=== PATIENT | male | born 1965 | race African-American/Black ===

== ENCOUNTER → 2016-11-19 | Day surgery (SDC) | payer OTHER ==
[~2016-11-19] MED LIST: METOPROLOL SUCC50 MG PO; MULTIVITAMINS1 EAC3 PO; SIMVASTATIN10 MG PO
--- NOTE | ~2016-11-19 | OR ---
Unit #: [id number] #: [id number] Patient: MEGHANN GARDINER [id number] [address] [place], [place] [address] [id number] O MR#: [id number] NAME: MEGHANN GARDINER. ROOM: Date of Procedure: 11/19/2016 Admission Date: 11/19/2016 Surgeon: Alberto Rabago Jr., M.D. : 1965 Attending Physician: Alberto Rabago Jr., M.D. Primary Care Physician: Dawn Vanegas M.D. OPERATIVE REPORT INDICATIONS FOR PROCEDURE The patient is a 51-year-old black male, recently presented to the office complaining of some rectal bleeding. He has had this off and on for a year. He feels that it may be hemorrhoidal. He is brought in this time for colonoscopy at his request. He has had no previous scopes. PREOPERATIVE DIAGNOSIS Rectal bleeding, etiology? POSTOPERATIVE DIAGNOSES Bleeding external hemorrhoids, which were slightly bleeding today along with a small polyp of the cecum approximately 2 to 3 mm in diameter. ANESTHESIA MAC anesthesia. PROCEDURE PERFORMED Flexible colonoscopy to the cecum with biopsy using a snare of a polyp in the cecum. DESCRIPTION OF PROCEDURE The patient was positioned in Ocasio position with left side down. After being given MAC anesthesia, digital rectal examination was performed, which revealed no palpable mass or tenderness. No stool present, but there was small amount of blood and there were several external hemorrhoids present. These appeared to be the source of the bleeding. His prostate was normal by palpation. The Olympus colonoscope was advanced through the anal canal up the rectum and retroflexed down to the area of the anorectal region. There were no internal hemorrhoids noted. The scope was then straightened and advanced up in the rectosigmoid, in the sigmoid and descending colon areas, around the splenic flexure and the transverse colon, around hepatic flexure and the ascending colon, down in the area of the cecum. The light from the tip of the scope could be seen transilluminating through right lower quadrant abdominal wall area. Multiple attempts in advancing the scope up the distal ileum were unsuccessful. In the area of the cecum just distal to the ileocecal valve, there was a small 2 to 3 mm polyp. This was snared at its base, suctioned out through the suction port and sent to pathology. The base was well coagulated with no evidence of any bleeding or extensive espitia. The scope was then slowly removed. There were no other polyps, no tumors, cancer, or AVMs. No evidence of any colitis, diverticulosis, or diverticulitis. The caliber of the colon appeared normal throughout Unit #: [id number] #: [id number] Patient: MEGHANN GARDINER without evidence of narrowing or obstruction. The scope was removed. The patient tolerated the procedure well and discharged in satisfactory condition. Dictated by... Alberto Rabago Jr., MSury. BOBBI/[place] TD: 11/19/2016 19:38 JOB #: [id number] OPERATIVE REPORT Page 1 of 1 X Alberto Rabago MD X PROCEDURE OPERATIVE NOTE
== END | disposition home or self-care (01) ==
LOC: COPS 11-07 12:30
PROVIDERS: Surgery
PROC: 0DBH8ZX Excision of Cecum, Via Natural or Artificial Opening Endoscopic, Diagnostic (ICD-10-PCS; principal; 2016-11-19 08:00)
DX: K64.4 Residual hemorrhoidal skin tags (principal); D12.0 Benign neoplasm of cecum; I10 Essential (primary) hypertension; E78.5 Hyperlipidemia, unspecified; R06.83 Snoring; G47.30 Sleep apnea, unspecified; Z79.899 Other long term (current) drug therapy; Z72.89 Other problems related to lifestyle; Z80.0 Family history of malignant neoplasm of digestive organs; Z83.6 Family history of other diseases of the respiratory system; Z88.0 Allergy status to penicillin
CPT/HCPCS: 88305

== ENCOUNTER → 2016-12-06 | Day surgery (SDC) | payer OTHER ==
--- NOTE | ~2016-12-06 | EKG ---
PATIENT: MEGHANN GARDINER UNIT #: [id number] Ventricular Rate: 44 BPM Atrial Rate: 44 BPM P-R Interval: 178 ms QRS Duration: 88 ms Q-T Interval: 442 ms QTC Calculation(Bezet): 377 ms P Wesson: 67 degrees Calculated R Wesson: 19 degrees Calculated T Wesson: 8 degrees Diagnosis Line: Marked sinus bradycardia Diagnosis Line: Borderline ECG Diagnosis Line: No previous ECGs available Diagnosis Line: Confirmed by KIRTI SALINAS MD ([id number]) on 12/07/2016 Diagnosis Line: 8:31:05 AM INTERPRETING MD: RITA ABRAMS
--- NOTE | ~2016-12-06 | OR ---
Unit #: [id number] #: [id number] Patient: MEGHANN GARDINER [id number] [address] [place], [place] [address] [id number] O MR#: [id number] NAME: MEGHANN GARDINER ROOM: Date of Procedure: 12/06/2016 Admission Date: 12/06/2016 Surgeon: Alberto Rabago Jr., M.D. : 1965 Attending Physician: Alberto Rabago Jr., M.D. Primary Care Physician: Dawn Vanegas M.D. OPERATIVE REPORT INDICATIONS FOR OPERATION The patient is a 51-year-old black male, who has had problems with an external hemorrhoid being painful and bleeding at times, also has a small papilloma of the left medial upper thigh that he wanted to remove and he is brought in this time for removal of both of these. He understands the procedure including the risks, including that of infection, poor healing, and recurrence and consents. 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 ANESTHESIA General with endotracheal intubation and 0.5% Marcaine with epinephrine locally. PROCEDURE PERFORMED External hemorrhoidectomy x1 with excision of fibroepithelioma of the left upper medial thigh. DESCRIPTION OF PROCEDURE The patient was positioned in supine position. After being anesthetized and intubated, he was placed in prone position, prepped and draped in routine fashion for the above procedure. The small fibroepithelioma was excised with a pair of Avila scissors and using pickups after was prepped and sent to pathology and the small incision at the base was then secured with Steri-Strips and Mastisol. Sterile dressing was applied. Perianal block was performed in the area of the hemorrhoid and 2-0 chromic stitch was placed internally at the upper portion of the hemorrhoid in the anal canal and the hemorrhoid itself was then lifted and the base clamped with a Marvell clamp and the hemorrhoid excised and the 2-0 chromic stitch was run in locking fashion externally with good closure of the mucosa. After this was complete, the area was saturated with viscous Xylocaine and sterile dressings were applied. Estimated blood loss for the procedure minimal, less than 10 mL. The patient received less than 1000 mL crystalloid solution during the procedure. Sponges and instrument counts were correct x3. No drains used. No complications. The patient was taken to the recovery room with stable vital signs in satisfactory condition. Dictated by... Unit #: [id number] #: [id number] Patient: ZULEYKAANASTASIYAJENNIFER Rabago Jr., M.D. JMB/[place] TD: 12/06/2016 10:25 JOB #: [id number] OPERATIVE REPORT Page 1 of 1 X Alberto Rabago MD X PROCEDURE OPERATIVE NOTE
== END | disposition home or self-care (01) ==
LOC: CSUR 06:19
DX: K64.4 Residual hemorrhoidal skin tags (principal); L91.8 Other hypertrophic disorders of the skin; L85.9 Epidermal thickening, unspecified; R23.4 Changes in skin texture; I10 Essential (primary) hypertension; E78.00 Pure hypercholesterolemia, unspecified; G47.30 Sleep apnea, unspecified; Z87.891 Personal history of nicotine dependence; Z88.0 Allergy status to penicillin; Z80.0 Family history of malignant neoplasm of digestive organs; Z79.899 Other long term (current) drug therapy
CPT/HCPCS: 88304; 93005; J0330; J2250; J2405; J3010